=== PATIENT | female | born 1945 | race Caucasian/White ===

== ENCOUNTER → 2016-07-06 | Outpatient (CLI) | payer MEDICARE ==
[~2016-07-06] MED LIST: BENICAR HCT 20-1 TA1 PO; CLARITIN D PO; COMBIVENT RESPIM4 GM INH; HAIR, SKIN & N1 EAC1 PO; LEVAQUIN PO; MUCINEX DM1 TAB.SR . PO; PAXIL CR PO; PAXIL PO; VICODIN 5/500 T1 TAB PO
--- NOTE | ~2016-07-06 | BD1 ---
[facility] A Service of [facility] & [facility] RADIOLOGY TEXT RESULTS PATIENT: CINDI FLYNN LOCATION: [facility] : 47 UNIT #: [id number] AGE: [address]: ALEXANDRIA SANTIZO MD SEX: F ORDER DR: [id number] [facility] [address] [place], [place] [address] [id number] O MR#: [id number] Acc #: [id number] NAME: CINDI FLYNN : 1945 SEX: F STUDY DATE/TIME: 07/06/2016 13:41 UNIT: [facility] ROOM: STUDY DESCRIPTION: BD Dexa Bone Dens 1+ Site Attending Physician: Alexandria Santizo Referring Physician: Alexandria Santizo Ordering Physician: Girish Santizo M.D. Primary Care Physician: Alexandria Santizo MEDICAL IMAGING REPORT This report is preliminary unless electronic signature is present EXAM DEXA scan HISTORY Postmenopausal screening for osteopenia FINDINGS Bone density was assessed utilizing a Logic bone densitometer. Total bone density within the lumbar spine was calculated at 0.840 g/cm sq with a T score of -1.9. Total bone density within the proximal right femur is calculated at 0.706 g/cm sq with a T-score of -1.9. IMPRESSION Total bone density within the lumbar spine and proximal right femur is between 1-2 standard deviations below the mean and is compatible with the World Health Organization criteria for osteopenia. Dictated by... Leydi Contreras M.D. THIS IS AN ELECTRONICALLY VERIFIED REPORT Leydi Contreras M.D. at 07/07/2016 8:00 AM KARAN/roxana TD: 07/06/2016 17:15 JOB #: [id number] MEDICAL IMAGING REPORT Page 1 of 1 COPY
== END | disposition home or self-care (01) ==
LOC: CWCC 13:15
DX: Z13.820 Encounter for screening for osteoporosis (principal); M85.89 Other specified disorders of bone density and structure, multiple sites
CPT/HCPCS: 77080

== ENCOUNTER → 2016-08-10 | Outpatient (CLI) | payer MEDICARE ==
--- NOTE | ~2016-08-10 | MY7 ---
[facility] A Service of [facility] & [facility] RADIOLOGY TEXT RESULTS PATIENT: CINDI FLYNN LOCATION: [facility] : 47 UNIT #: [id number] AGE: [address]: ALEXANDRIA SANTIZO MD SEX: F ORDER DR: [id number] [facility] [address] [place], [place] [address] [id number] O MR#: [id number] Acc #: [id number] NAME: CINDI FLYNN : 1945 SEX: F STUDY DATE/TIME: 08/10/2016 12:45 UNIT: [facility] ROOM: STUDY DESCRIPTION: MY Mammogram Dx Dig Lt Attending Physician: Alexandria Santizo Ordering Physician: Girish Satnizo M.D. Primary Care Physician: Alexandria Santizo MEDICAL IMAGING REPORT This report is preliminary unless electronic signature is present EXAM Left breast digital diagnostic mammogram with CAD Date: 08/10/2016 HISTORY Follow up focal asymmetry in the left breast. Previous history of implant excisions 3 years ago. COMPARISON Left breast digital diagnostic mammogram 02/05/2016. Bilateral screening mammogram 01/24/2016, 11/30/2014, 08/21/2013, 09/29/2011. FINDINGS CC, MLO and true lateral views were obtained of left breast utilizing digital technique and reviewed an FDA-approved CAD device. Scattered fibroglandular density is present within the left breast. Spot compression was performed of the anterior superior left breast in the MLO plane, demonstrating a normal benign appearing band of fibroglandular tissue which appears to phase into normal fibroglandular components. No abnormal correlate is seen on the CC view, either. As there is no significant change from previous diagnostic mammogram, ultrasound was deemed unwarranted today. Multiple round markers placed over the left breast denoting skin lesions. IMPRESSION BIRADS 2. Benign findings in the left breast. The abnormality discussed on the previous bilateral screening mammogram of 01/24/2016 in the left breast is favored to represent slight differences in positioning, with normal-appearing fibroglandular tissue in the left breast. No features suspicious for malignancy on today's examination. STS. [facility] A Service of [facility] RADIOLOGY TEXT RESULTS PATIENT: CINDI FLYNN LOCATION: [facility] : 47 UNIT #: [id number] AGE: [address]: ALEXANDRIA SANTIZO MD SEX: F ORDER DR: It is recommended the patient return for routine bilateral screening mammograms cycle, due in January 2017. Findings and recommendations were discussed with the patient today in the radiology department. BIRADS II. Patients over the age of 40 are entered into a reminder system with target due date for the next mammogram. A result letter will also be sent to the patient. BIRADS: 2 Benign Finding Dictated by... Olinda Berger M.D. THIS IS AN ELECTRONICALLY VERIFIED REPORT Olinda Berger M.D. at 08/13/2016 8:30 AM LEONEL/aryan TD: 08/10/2016 14:37 JOB #: [id number] MEDICAL IMAGING REPORT Page 1 of 1 COPY
== END | disposition home or self-care (01) ==
LOC: CMAM 12:16
DX: R92.8 Other abnormal and inconclusive findings on diagnostic imaging of breast (principal)
CPT/HCPCS: G0206